=== PATIENT | male | born 1940 | race Caucasian/White ===

== ENCOUNTER 2017-05-25 17:45 | Emergency (ER) | payer MEDICARE, OTHER ==
[2015-11-20 12:27] VITALS: BMI 26.6
[~2017-05-25 17:45] MED LIST: ASPIRIN325 MG PO; AUGMENTIN 875-11 TAB PO; BACTRIM DS TABL1 TAB PO; BAYER CHEWABLE81 MG PO; CORDARONE200 MG PO; COREG 3.1253.125 MG PO; COUMADIN3 MG PO; IPRAT-ALBUT 0.5-3 ML UPD; K-DUR20 MEQ PO; LASIX40 MG PO; LEVAQUIN250 MG PO; MUCINEX600 MG PO; PEPCID20 MG PO; PREDNISONE10 MG PO; PREDNISONE20 MG PO; PROAIR HFA8.5 GM INH
[2017-05-25 18:16] LABS: APPEARANCE CLEAR (CLEAR); BILIRUBIN NEGATIVE (NEGATIVE); COLOR YELLOW (YELLOW); GLUCOSE NEGATIVE (NEGATIVE); KETONE NEGATIVE (NEGATIVE); LEUKOCYTE ESTERASE NEGATIVE (NEGATIVE); NITRITE NEGATIVE (NEGATIVE); PROTEIN NEGATIVE (NEGATIVE); UROBILINOGEN NORMAL (NORMAL)
[2017-05-25 18:22] LABS: BASOPHILS 0.2 % (0-2); EOSINOPHILS 1.4 % (0-7); HEMATOCRIT 46.9 % (42.0-54.0); HEMOGLOBIN 16.5 g/dL (13.5-17.5); IMMATURE GRANULOCYTES 0.4 % (0-5); LYMPHOCYTES 20.4 % (15-50); MCH 32.2 pg (26.0-34.0); MCHC 35.2 g/dL (31.0-37.0); MCV 91.6 fL (80.0-100.0); MEAN PLATELET VOLUME 10.8 fL (7.4-10.4); MONOCYTES 9.8 % (2-11); NEUTROPHILS 67.8 % (40-80); RBC 5.12 10x6/uL (4.20-6.10); RDW 12.9 % (11.5-14.5); WBC 13.5 10x3/uL (4.8-10.8)
[2017-05-25 18:28] LABS: PLATELET COUNT 219 10x3/uL (130-400)
[2017-05-25 18:46] LABS: ALBUMIN 3.6 g/dL (3.4-5.0); ANION GAP 11.5 mmol/L (8-16); BILIRUBIN - TOTAL 0.84 mg/dL (0.2-1.3); CALCIUM 9.1 mg/dL (8.5-10.1); CARBON DIOXIDE 28.8 mmol/L (21.0-32.0); CREATININE - SERUM 1.5 mg/dL (0.6-1.3); POTASSIUM - SERUM 4.3 mmol/L (3.5-5.1); PROTEIN - SERUM 8.1 g/dL (6.4-8.2)
[2017-05-25 18:57] LABS: AMYLASE - SERUM 83 U/L (25-115); LIPASE 209 U/L (73-393)
== END 2017-05-25 20:34 | disposition home or self-care (01) ==
LOC: D.ER 17:45
PROVIDERS: Emergency Medicine; Nurse Practitioner Family
DX: R10.13 Epigastric pain (principal); K29.00 Acute gastritis without bleeding

== ENCOUNTER → 2018-06-25 08:10 | Outpatient (CLI) | payer MEDICARE, OTHER ==
[2015-11-20 12:27] VITALS: BMI 26.6
== END | disposition home or self-care (01) ==
LOC: D.CT 08:10
DX: R10.13 Epigastric pain (principal)

== ENCOUNTER → 2020-06-28 09:52 | Outpatient (CLI) | payer MEDICARE, OTHER ==
[2015-11-20 12:27] VITALS: BMI 26.6
== END | disposition home or self-care (01) ==
LOC: D.HCCECHO 09:52
PROVIDERS: ATTEND Internal Medicine Cardiovascular Disease
DX: I25.10 Atherosclerotic heart disease of native coronary artery without angina pectoris (principal)